=== PATIENT | male | born 1950 | race Caucasian/White ===

== ENCOUNTER 2020-01-01 16:48 | Emergency (ER) | payer MEDICARE, BC ==
[~2020-01-01] VITALS: Ht 182.9 cm; Wt 92.6 kg
[2020-01-01 16:49] VITALS: BP 154/72
[2020-01-01] MEDS ORDERED: XARE20TA PO (17:00)
[2020-01-01] MEDS ORDERED: METO50TA7 PO (17:00)
[2020-01-01] MEDS ORDERED: ARMO180T PO (17:00)
[2020-01-01] MEDS ORDERED: IBUP-1022 PO (17:00)
--- NOTE | 2020-01-01 17:28 | REPVR ---
PROCEDURE INFORMATION: Exam: CT Head Without Contrast Exam date and time: 01/01/2020 5:18 PM Age: 69 years old Clinical indication: Injury or trauma; Blunt trauma (contusions or hematomas) TECHNIQUE: Imaging protocol: Computed tomography of the head without contrast. Radiation optimization: All CT scans at this facility use at least one of these dose optimization techniques: automated exposure control; mA and/or kV adjustment per patient size (includes targeted exams where dose is matched to clinical indication); or iterative reconstruction. COMPARISON: No relevant prior studies available. FINDINGS: Brain: There is no acute intracranial hemorrhage, cerebral edema, or midline shift. Chronic microvascular ischemic changes are seen in the periventricular white matter. Age-related cerebral and cerebellar volume loss is present. Cerebral ventricles: Mild ex vacuo dilation of the lateral and third ventricles is noted. Bones/joints: No acute fracture is identified. Postoperative changes are seen involving the left orbital rim. Paranasal sinuses: There is no acute sinusitis. Mastoid air cells: The mastoid air cells are clear. Orbital cavity: The included orbital structures are unremarkable. Vasculature: Atherosclerotic calcifications are seen involving the cavernous carotid arteries. Soft tissues: Unremarkable. IMPRESSION: 1. No acute intracranial abnormality. 2. Atrophy and chronic deep white matter ischemic changes. Electronically signed by: Addison Fernandez On 01/01/2020 17:28:51 PM
--- NOTE | 2020-01-01 17:31 | REPVR ---
PROCEDURE INFORMATION: Exam: CT Maxillofacial Without Contrast Exam date and time: 01/01/2020 5:18 PM Age: 69 years old Clinical indication: Injury or trauma; Blunt trauma (contusions or hematomas); Orbit/periorbital; Right TECHNIQUE: Imaging protocol: Computed tomography images of the face without contrast. Radiation optimization: All CT scans at this facility use at least one of these dose optimization techniques: automated exposure control; mA and/or kV adjustment per patient size (includes targeted exams where dose is matched to clinical indication); or iterative reconstruction. COMPARISON: No relevant prior studies available. FINDINGS: Orbital cavity: The orbital structures are unremarkable. Bones/joints: No acute fracture is identified. Postoperative changes are noted along the left inferior orbital rim and the superolateral left orbital rim. Paranasal sinuses: There is mild mucosal thickening in the left frontal sinus. There is no acute sinusitis. Soft tissues: Mild right periorbital soft tissue swelling is present. IMPRESSION: No acute fracture. Electronically signed by: Addison Fernandez On 01/01/2020 17:31:29 PM
== END 2020-01-01 17:48 | disposition home or self-care (01) ==
LOC: M ED 16:48
DX: S00.11XA Contusion of right eyelid and periocular area, initial encounter (principal); W27.1XXA Contact with garden tool, initial encounter; Y92.9 Unspecified place or not applicable; Y93.H2 Activity, gardening and landscaping; Y99.9 Unspecified external cause status; Z79.1 Long term (current) use of non-steroidal anti-inflammatories (NSAID); Z79.899 Other long term (current) drug therapy